=== PATIENT | female | born 1990 | race American Indian/Alaskan Native ===

== ENCOUNTER 2017-05-25 12:34 | Outpatient (CLI) | payer MEDICAID ==
[2017-05-25 13:16] VITALS: BP 92/60
[2017-05-25] MEDS ORDERED: LACTATED RINGERS 500 ML IV ONE (13:24)
[2017-05-25 13:48] LABS: Bilirubin,Urine NEG (Negative); Blood,Urine SM (Negative); Ketones,Urine NEG (Negative); Leukocyte Esterase,Urine LG (Negative); Nitrite,Urine NEG (Negative); Protein,Urine <15 mg/dL mg/dL (Negative); Urobilinogen,Urine < 2.0 mg/dL (<2.0)
[2017-05-25] MEDS ORDERED: ceFAZolin 2 GM in NACL 0.9% 100 ML IV ONE (15:20)
[2017-05-25] MEDS ORDERED: NORCO 5/325 PO ONE (16:52)
== END 2017-05-25 17:00 | disposition home or self-care (01) ==
LOC: TRG 12:34
PROVIDERS: ATTEND Obstetrics & Gynecology
DX: O47.02 False labor before 37 completed weeks of gestation, second trimester (principal); Z87.891 Personal history of nicotine dependence; Z3A.27 27 weeks gestation of pregnancy
CPT/HCPCS: 36415; 59025; 81001; 82731; 96360; 96365; J0690; J7120

== ENCOUNTER 2017-06-12 17:01 | Outpatient (CLI) | payer MEDICAID ==
[2017-06-12] MEDS ORDERED: LACTATED RINGERS 500 ML IV ONE (17:42)
[2017-06-12 18:07] LABS: Bilirubin,Urine NEG (Negative); Blood,Urine NEG (Negative); Ketones,Urine NEG (Negative); Leukocyte Esterase,Urine NEG (Negative); Mucus,Urine FEW /HPF; Nitrite,Urine NEG (Negative); Protein,Urine <15 mg/dL mg/dL (Negative); Urobilinogen,Urine < 2.0 mg/dL (<2.0); WBC,Urine < 1.0 /HPF (0.0-6.0)
== END 2017-06-12 19:59 | disposition home or self-care (01) ==
LOC: TRG 17:01
PROVIDERS: ATTEND Obstetrics & Gynecology
DX: O47.03 False labor before 37 completed weeks of gestation, third trimester (principal); Z87.891 Personal history of nicotine dependence; Z3A.29 29 weeks gestation of pregnancy
CPT/HCPCS: 59025; 81001

== ENCOUNTER 2017-07-10 13:35 | Outpatient (CLI) | payer MEDICAID ==
[2017-07-10] MEDS ORDERED: LACTATED RINGERS 500 ML IV ONE (13:54)
[2017-07-10 14:05] LABS: Urine Drugs of Abuse Note Disclamer
[2017-07-10 14:44] LABS: Bilirubin,Urine NEG (Negative); Blood,Urine NEG (Negative); Ketones,Urine NEG (Negative); Leukocyte Esterase,Urine SM (Negative); Mucus,Urine FEW /HPF; Nitrite,Urine NEG (Negative)
[2017-07-10 15:04] VITALS: BP 95/50
== END 2017-07-10 15:30 | disposition home or self-care (01) ==
LOC: TRG 13:35
PROVIDERS: ATTEND Obstetrics & Gynecology
DX: O47.03 False labor before 37 completed weeks of gestation, third trimester (principal); Z3A.33 33 weeks gestation of pregnancy
CPT/HCPCS: 59025; 80307; 81001